=== PATIENT | male | born 1950 | race Native Hawaiian/Other Pacific Islander ===

== ENCOUNTER → 2018-01-02 | Outpatient (CLI) | payer OTHER ==
[~2018-01-02] MED LIST: ALLOPURINOL 30300 M1 PO; AMLODIPINE BESY10 MG PO; COZAAR 50 MG TA50 M2 PO; HIGH BLOOD PRESSURE; HYDROCHLOROTH12.5 M1 PO; KEFLEX500 MG PO; PREVPAC PATIEN1 EACH PO; PRILOSEC40 MG PO
== END ==
LOC: M.RAD 14:24
DX: M25.511 Pain in right shoulder (principal); M25.512 Pain in left shoulder; M19.90 Unspecified osteoarthritis, unspecified site

== ENCOUNTER 2019-05-28 13:28 | Inpatient (IN) | payer OTHER ==
[~2019-05-28] VITALS: Ht 182.9 cm; Wt 113.5 kg
[~2019-05-28 13:28] MED LIST changes: +OMEPRAZOLE40 MG PO; -PRILOSEC40 MG PO
[2019-05-28 13:33] VITALS: BP 144/63
[2019-05-28] MEDS ORDERED: FOLIC ACID1 MG PO (13:52)
[2019-05-28] MEDS ORDERED: PREDNISONE 5 MG5 M1 PO (13:52)
[2019-05-28] MEDS ORDERED: SYNTHROID75 MCG PO (13:52)
[2019-05-28] MEDS ORDERED: METHOTREXATE 22.5 MG PO (13:52)
[2019-05-28] MEDS ORDERED: COZAAR 25 MG TA25 M2 PO (13:52)
[2019-05-28] MEDS ORDERED: NORVASC10 MG PO (13:53)
[2019-05-28] MEDS ORDERED: HYDROCHLOROTH12.5 M1 PO (13:53)
[2019-05-28 14:49] LABS: HEMOGLOBIN 7.9 gm/dL (14.0-18.0); MCHC 35.1 g/dL (28.0-37.0); RBC 2.09 mil/uL (4.50-6.00)
[2019-05-28 14:52] LABS: HEMATOCRIT 22.5 % (42.0-52.0); MCH 37.7 pg (26.0-34.0); MCV 107.4 fL (80.0-100.0); MPV 8.2 fl. (7.2-11.1); NUCLEATED RBCS 0 /100WBC; RDW-CV 19.1 % (10.5-14.5)
[2019-05-28 14:55] LABS: PLATELET COUNT* 16 thou/uL (150-400); WBC 0.6 thou/uL (4.0-11.0)
[2019-05-28 15:09] LABS: ANION GAP 11 mmol/L (7-16); BUN 11 mg/dL (7-18); CALCIUM 8.4 mg/dL (8.5-10.1); CHLORIDE 93 mmol/L (98-107); CO2 23 mmol/L (21-32); CREATININE 1.3 mg/dL (0.6-1.3); GLUCOSE 121 mg/dL (70-99); POTASSIUM 3.6 mmol/L (3.5-5.1); SODIUM 127 mmol/L (136-145)
[2019-05-28 15:13] LABS: ALBUMIN 2.6 g/dL (3.4-5.0); ALKALINE PHOSPHATASE 135 U/L (46-116); SGOT 257 U/L (15-37); SGPT 187 U/L (30-65); TOTAL BILIRUBIN 2.8 mg/dL (<0.1-1.0); TOTAL PROTEIN 6.5 g/dL (6.4-8.2); TROPONIN-I LEVEL <0.06 ng/mL (<0.06)
[2019-05-28 15:33] LABS: URINE BLOOD NEGATIVE (Negative); URINE CLARITY CLEAR; URINE COLOR YELLOW; URINE GLUCOSE-RANDOM TRACE (Negative); URINE KETONES TRACE (Negative); URINE LEUKOCYTES-REFLEX NEGATIVE (Negative); URINE PROTEIN 1+ (Negative); URINE SPECIFIC GRAVITY 1.015 (1.005-1.030); URINE UROBILINOGEN >= 8.0 E.U./dl (0.2-1.0)
[2019-05-28 15:45] LABS: URINE BILIRUBIN 3+ (Negative); URINE NITRITE-REFLEX POSITIVE (Negative)
[2019-05-28 15:46] LABS: ICTOTEST (BILI CONFIRMATORY) Negative (Negative)
[2019-05-28 16:11] LABS: ABSOLUTE LYMPHOCYTES 0.4 thou/uL (0.8-5.3); ABSOLUTE NEUTROPHILS 0.2 thou/uL (1.6-8.1); ATYPICAL LYMPHS 4 %
[2019-05-28 16:12] LABS: PLATELET ESTIMATE DECREASED
[2019-05-28 16:13] LABS: HYPOCHROMASIA 2+
[2019-05-28 16:14] LABS: ANISOCYTOSIS 2+; MACROCYTES 1+
[2019-05-28 16:41] LABS: SQUAMOUS 0-3 Few /LPF (0-3)
[2019-05-28 16:42] LABS: MUCUS 4-6 Moderate strn/LPF (None Seen); URINE RBC 0-2 Rare /HPF (0-2); URINE WBC-REFLEX None Seen /HPF (0-5)
[2019-05-28 16:43] LABS: FINE GRANULAR CASTS 0-3 Few /LPF (None Seen); HYALINE CASTS >10 Many /LPF (None Seen)
[2019-05-28 16:44] LABS: CRYSTALS None Seen /LPF (None Seen)
[2019-05-28 16:58] LABS: APTT 33.5 Seconds (25.0-31.3); INR 1.2; PROTIME 12.5 Seconds (9.20-11.50)
[2019-05-28 17:12] LABS: % SATURATION 22 % (20-39); IRON 44 ug/dL (50-175)
[2019-05-28 17:29] LABS: CALCIUM 8.5 mg/dL (8.5-10.1); CREATININE 1.1 mg/dL (0.6-1.3); MAGNESIUM 1.4 mg/dL (1.8-2.4); POTASSIUM 3.6 mmol/L (3.5-5.1)
[2019-05-28 19:44] VITALS: BP 115/67
[2019-05-28 20:00] VITALS: BP 131/49
[2019-05-29] VITALS: BP 140/77
[2019-05-29 03:50] LABS: INFLUENZA A ANTIGEN Negative (Negative); INFLUENZA B ANTIGEN Negative (Negative)
[2019-05-29 04:00] VITALS: BP 126/73
[2019-05-29 04:35] LABS: HEMOGLOBIN 8.4 gm/dL (14.0-18.0)
[2019-05-29 04:38] LABS: HEMATOCRIT 24.2 % (42.0-52.0); MCH 37.3 pg (26.0-34.0); MCHC 34.8 g/dL (28.0-37.0); MCV 107.2 fL (80.0-100.0); NUCLEATED RBCS 1 /100WBC; RBC 2.26 mil/uL (4.50-6.00); RDW-CV 19.9 % (10.5-14.5)
[2019-05-29 04:47] LABS: CALCIUM 8.8 mg/dL (8.5-10.1); CREATININE 1.1 mg/dL (0.6-1.3)
[2019-05-29 05:00] LABS: PLATELET COUNT* 15 thou/uL (150-400); WBC 0.4 thou/uL (4.0-11.0)
--- NOTE | 2019-05-29 05:23 | NUR ---
ASSUMED PATIENT CARE AT 1900. PATIENT AERT AND ORIENTED TIMES FOUR. NO COMPLAINTS OF PAIN OR DISCOMFORT NOTED. HAS BEEN TRANSFERRING SELF TO [facility]. CO TEACHER AND HOURLY ROUNDING COPETED DOCUMENTED.
--- NOTE | 2019-05-29 05:28 | NUR ---
ASSUMED PATIENT CARE AT 1900. PATIENT ALERT AND ORIENTED TIMES FOUR. NO COMPLAINTS OF PAIN OR DISCOMFORT NOTED. IV PATENT. HOURLY ROUNDNG AND MERCHANDISER SEASONAL COMPLETED CHARTED.
[2019-05-29 05:38] LABS: ABSOLUTE LYMPHOCYTES 0.2 thou/uL (0.8-5.3); ABSOLUTE NEUTROPHILS 0.2 thou/uL (1.6-8.1)
[2019-05-29 05:39] LABS: ANISOCYTOSIS 1+; PLATELET ESTIMATE DECREASED; POIKILOCYTOSIS 1+
[2019-05-29 07:00] VITALS: BP 123/66
--- NOTE | 2019-05-29 08:21 | NUR ---
INITAL ASSESSMENT COMPLETED CHARTED. VSS. TRACING SR WITH BBB ON MONITOR. PT DENIES PAIN, CP, SOA, N/V/D. PT ALERT & ORIENTED AND ABLE TO VOICE ALL NEEDS. PT DENIES ANY FURTHER NEEDS AT THIS TIME. HOURLY ROUNDING AND FALL PRECAUTIONS IN PLACE FOR PT SAFETY. CLWR.
--- NOTE | 2019-05-29 09:30 | EKG ---
[place] [address] ELECTROCARDIOGRAM REPORT Name: JACIJENNA Herman Room: [address] ADM IN .R.#: [id number] Admission: 05/28/19 Attend Phys: Brii Whittington Discharge: Date of : 46 Report #: [id number] THIS REPORT FOR: //name// [facility] ED Test Date: 2019-05-28 Test Time: 14:41:28 Pat Name: JENNA BEATTY Department: Room: [facility] Gender: M Internal Control Analyst: EV : 1950 Requested By: Angelica Mina Order Number: [id number] MD: Kaushik Kline Measurements Intervals [place] Rate: 92 P: NV: QRS: 56 QRSD: 114 T: 4 QT: 375 QTc: 464 Interpretive Statements Sinus rhythm Right bundle-branch block Compared to ECG 11/17/2014 11:12:09 No significant changes noted Electronically Signed On 05-29-2019 9:29:55 CDT by Kaushik Kline [email or web address] <ELECTRONICALLY SIGNED> By: Kaushik Kline MD, FACCarlie 05/29/19 0929 [id number] Kaushik Kline MD, [facility] /EPI
[2019-05-29 12:00] VITALS: BP 108/60
--- NOTE | 2019-05-29 13:58 | NUR ---
Pt is A&O. Resides at home alone. Independent, continues to drive. Dtr completes cooking and cleaning. Pt has a cane that he uses PRN. No hx of HH or SNF. Goal is home at dc, no needs anticipated, but is open to HH if needed. Following.
[2019-05-29 16:00] VITALS: BP 118/66
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
[2019-05-29 20:00] VITALS: BP 114/59
[2019-05-30] VITALS (9 sets, daily range): BP systolic 101–135; BP diastolic 42–75
--- NOTE | 2019-05-30 05:50 | NUR ---
ASSUMED PATIENT CARE AT 1900. PATIENT ALERT AND ORIENTED TIMES FOUR. NO COMPLAINTS OF PAIN OR DISCOMFORT NOTED. IV PATENT TO FLUIDS. LABOR GANG SUPERVISOR AND HOURLY ROUNDING COMPLETED CHARTED.
--- NOTE | 2019-05-30 09:32 | NUR ---
ASSUMED CARE OF PT THIS AM AROUND 0715- COPPER ROLLER HANDLER PRINTING IN PLACE ORDERED, TRACING SR/BBB- UPON ASSESSMENT PT NOTED TO BE RESTING IN BED WITH EYES CLOSED, ARROUSABLE- PT A&O X4- CONTINENT OF BOWEL AND BLADDER- UP AD-KAILA IN ROOM, STEADY GAIT NOTED- LCTA, RESP EVEN AND UN-LABORED- VSS, O2 SAT 99% ON RA- ABD SOFT/ROUND/NON-TENDER, BS X4 QUADS- LAST BM REPORTED 05/29/19- IV NOTED TO LEFT AC INTACT, IVF INFUSSING PRESCRIBED- LEFT GREAT TOE NOTED WITH DRESSING INTACT, NO VISIBLE DRAINAGE NOTED-NEUTROPENIC PRECAUTIONS IN PLACE INDICATED- PT DENIES ANY C/O PAIN/DISCOMFORT AT THIS TIME- CALL LIGHT AND PERSONAL BELONGINGS WITH IN REACH- PT MAKES NEEDS KNOWN- ALL NEEDS MET AT THIS TIME-WCTM
[2019-05-30 09:38] LABS: BASOPHILS 0.1 %; EOSINOPHILS 0.8 %; HEMATOCRIT 22.2 % (42.0-52.0); HEMOGLOBIN 7.7 gm/dL (14.0-18.0); LYMPHOCYTES 58.6 %; MCH 37.6 pg (26.0-34.0); MCHC 34.7 g/dL (28.0-37.0); MCV 108.2 fL (80.0-100.0); MONOCYTES 16.9 %; MPV 7.6 fl. (7.2-11.1); NUCLEATED RBCS 1 /100WBC; POLYS 23.6 %; RBC 2.06 mil/uL (4.50-6.00); RDW-CV 19.6 % (10.5-14.5)
[2019-05-30 09:44] LABS: ABSOLUTE LYMPHOCYTES 0.6 thou/uL (0.8-5.3); ABSOLUTE MONOCYTES 0.2 thou/uL (0.0-1.2); ABSOLUTE NEUTROPHILS 0.3 thou/uL (1.6-8.1)
[2019-05-30 09:51] LABS: WBC 1.1 thou/uL (4.0-11.0)
[2019-05-30 10:01] LABS: ALBUMIN 2.3 g/dL (3.4-5.0); CALCIUM 8.3 mg/dL (8.5-10.1); CREATININE 0.9 mg/dL (0.6-1.3); POTASSIUM 3.4 mmol/L (3.5-5.1); TOTAL BILIRUBIN 1.3 mg/dL (<0.1-1.0); TOTAL PROTEIN 5.8 g/dL (6.4-8.2)
[2019-05-30] MEDS ORDERED: LISINOPRIL20 MG PO (13:21)
[2019-05-30] MEDS ORDERED: MULTIVITAMINS1 EAC7 PO (13:22)
[2019-05-30] MEDS ORDERED: MIRALAX17 GM PO (13:23)
[2019-05-30] MEDS ORDERED: SODIUM CHLORIDE PO (13:24)
[2019-05-30] MEDS ORDERED: CARDURA4 MG PO (13:26)
[2019-05-30] MEDS ORDERED: COLACE100 MG PO (13:27)
[2019-05-30] MEDS ORDERED: ASPIR 8181 MG PO (13:28)
[2019-05-30] MEDS ORDERED: TYLENOL EXTRA500 MG PO (13:29)
[2019-05-30] MEDS ORDERED: CARVEDILOL12.5 MG PO (13:29)
[2019-05-30] MEDS ORDERED: IRON325 PO (13:29)
[2019-05-30] MEDS ORDERED: FISH OIL 1,001000 M2 PO (13:30)
[2019-05-30] MEDS ORDERED: VITAMIN D1000 UNI1 PO (13:31)
[2019-05-30] MEDS ORDERED: VITAMIN B-12500 MCG PO (13:32)
--- NOTE | 2019-05-30 13:36 | NUR ---
Nutrition: consulted for wound, not pressure related. No intake records. Other staff in with pt at visit this afternoon. BMI indicates obesity. Prealbumin 8.4. Per physician note, pt denied any issues eating or drinking. Receiving Ensure per physicain order. Physician noted malnutrition-defer further dx. Assess at low risk at this time; rec continue POC.
[2019-05-30] MEDS ORDERED: NORVASC10 MG PO (16:18)
[2019-05-30] MEDS ORDERED: COZAAR 25 MG TA25 M1 PO (16:24)
[2019-05-30] MEDS ORDERED: FOLIC ACID1 MG PO (16:24)
[2019-05-30] MEDS ORDERED: METHOTREXATE 22.5 MG PO (16:25)
[2019-05-30] MEDS ORDERED: PREDNISONE 5 MG5 M1 PO (16:26)
[2019-05-30] MEDS ORDERED: OMEPRAZOLE40 MG PO (16:29)
--- NOTE | 2019-05-30 18:53 | NUR ---
ORDERS RECEIVIED FOR OKAY TO D/C THIS SHIFT POST PLATELET INFUSSION PER - DR RUTH HERE AND STATES SHE WILL HAVE ODDICE CONTACT PT FOR FOLLOW UP APPOINTMENT AT HOME- I UNIT OF PLATLETS GIVEN PRIRO TO D/C WITH NO PROBLEMS NOTED- IV TO LEFT FA D/C'D ALONG WITH TOWER SUPERVISOR PRIOR TO D/C- D/C EDUCATION/TEACHING/NEEDED FOLLOW UP'S COMMUNICATED, WITH VERBAL UNDERSTANDING NOTED PER PT AND GRAND DAUGHTER- WRITTEN EDUCATION PROVIED TO PT AND GRAND DAUGHTER WITH ALL QUESTIONS AND CONCERNS ADDRESSED PRIOR TO D/C- BELONGINGS PACKED AND ACCOUNTED FOR PER PT AND GRANDAUGHTER- PT ESCORTED PER TECH VIA W/C WITH BELONGINGS; GRAND DAUGHTER AT SIDE TO VEHICLE AT 1902- NO PROBLEMS TO NOTE AT TIME OF D/C
[2019-05-31 08:03] LABS: PLATELET COUNT* 12 thou/uL (150-400)
--- NOTE | 2019-06-14 10:07 | PATH ---
[address] [address] PATHOLOGY RPT PROCEDURE Name: CORTEZ PAREKH Room: [address] IN [facility]#: [id number] Admission: 05/28/19 Date of : 46 Discharge: 05/30/19 Report #: [id number] Path Case #: [id number] [facility] Accession Number: [id number] . 01 Material submitted: . PART A: bone - BONE MARROW BIOPSY PART B: bone - BONE MARROW CLOT PART C: bone - BONE MARROW ASPIRATE SLIDE PART D: bone - PERIPHERAL BLOOD SMEAR PART E: bone - BONE MARROW FLOW . 01 Clinician provided ICD-10: D 61.818 K72.00 . 01 Clinical history: . Other pancytopenia, acute and subacute hepatic failure without coma 69-year-old man with pancytopenia. . 02 Diagnosis: Bone marrow aspirate, biopsy, cell clot and peripheral blood: - Peripheral blood with pancytopenia including moderate to severe macrocytic anemia, severe leukopenia and severe thrombocytopenia. - Mildly hypercellular bone marrow with trilineage hematopoiesis, erythroid hyperplasia/mild myeloid hypoplasia, trilineage dyspoiesis and mildly increased blasts (7% by flow cytometry and 9% by morphology). - Monoclonal plasma cell population detected (5-10% lambda restricted plasma cells by immunohistochemical staining). - See comment. (CLW:ross; 06/05/2019) . . Special studies report received from [facility], [address] [place] [address], [address], [place], [address], on case [id number], labeled with their number [id number], dated 06/01/2019. . Flow Cytometry: Hematologic Neoplasia Assessment . Clinical History Pancytopenia, hepatic failure . Indication for Study Evaluation for hematolymphoid neoplasia . Specimen Bone Marrow Aspirate . Viability 71% (7AAD exclusion) [place] [address] PATHOLOGY RPT PROCEDURE Name: CORTEZ PAREKH Room: [address] IN [facility]#: [id number] Admission: 05/28/19 Date of : 46 Discharge: 05/30/19 Report #: [id number] Path Case #: [id number] . Interpretation Bone Marrow Aspirate: - Relatively decreased granulocytes, abnormal granulocytes maturation pattern and 7% blasts. - Relatively increased monocytic cells (22% of sample), - Monotypic plasma cell population (1.2% of sample), consistent with a plasma cell neoplastic process . Comments The immunophenotypic changes in myeloid and monocytic cells are compatible with, but are not specific for a myeloid neoplasm (CMML, etc.). Some reactive process (sever infection, medication, etc.) may cause similar immunophenotypic changes in the bone marrow. Atypical monocytes cannot be differentiated from promonocytes by flow cytometry and acute myeloid leukemia with monocytic differentiation is also in the differential diagnosis. Plasma cells are typically underrepresented by flow cytometry. Correlation with all available clinical, laboratory, and morphologic data is recommended. . The results should be considered in the context of decreased specimen integrity. . . Populations Analyzed Myeloid Blasts: 7% FR20hfp+, CD38+, CD13+, CD34+, CD117+, HLA-DR+, CD33-/+(33%+), CD64-/+, CD11b-, CD11c-/ subset dim+, CD7-, CD56-, CD2-/ subset dim+. Blasts are predominantly negative for other markers tested. Lymphocytes: 33% B-cells: 3.1%, polytypic/polyclonal sIg light chain pattern T-cells: no significant abnormalities of the markers tested CD4+ T-cells: 19.9% (including 0.9% CD57+ cells) CD8+ T-cells: 4.0% (including 1.7% CD57+ cells) CD4:CD8: 5.0 NK cells: 4.7% Neutrophilic Cells: 28% Relatively decreased. Decreased CD16; partial CD56 (approximately 13%+); decreased side scatter Monocytic Cells: 22% Relatively increased. Slightly decreased CD14 and CD11b; partial CD56 (approximately 27%+) Eosinophils: 1% No relative increase Basophils: 0.2% No relative increase Plasma Cells: 1.5% 1) Abnormal plasma cells, 1.2% of sample, CD45-, CD19-, CD20-, CD38+ (bright), CD56+/-, CD117+, CD138+, HLA DR-, cIg lambda+ 2) Polytypic plasma cells, 0.3% of sample Hematogones: 0.01% [place] [address] PATHOLOGY RPT PROCEDURE Name: CORTEZ PAREKH Room: [address] IN [facility].R.#: [id number] Admission: 05/28/19 Date of : 46 Discharge: 05/30/19 Report #: [id number] Path Case #: [id number] Remaining CD45 6% No significant reactivity with the markers Negative Events/ tested (may represent unlysed red blood cells, Debris: erythroid precursors, platelets, debris, etc.) (erythroid precursors may be underrepresented due to sample lysis/processing) . Morphologic Evaluation A slide was reviewed for director quality assurance purposes only. . Specimen Description Total Cell Yield: 2.48 X 10 and 6 Viability is 71%. Flow cytometric data derived from samples with <80% viability needs to be interpreted within the context of all clinical, laboratory, and morphologic data available. . Reagent(s) Used CD2, CD3, CD4, CD5, CD7, CD8, CD10, CD11b, CD13, CD14, CD16, CD19, CD20, CD33, CD34, CD38, CD45, CD56, CD57, CD64, CD117, HLA-DR, kappa, lambda, CD138, CytoKappa, CytoLambda . at [employer]. Bruna Dutton MD Pathologist . Intended Use Flow cytometry is optimally used to immunophenotypically characterize abnormal populations when they are detected. Negative flow cytometry results do not exclude lymphoma or neoplasia. Possible false negative flow cytometry results may occur in, but are not limited to, the following: neoplastic cells in Hodgkin lymphoma are not typically adequately represented by routine clinical flow cytometry; neoplastic cells may be lost or inadequately represented due to degeneration, sample processing, sampling artifact, or patchy involvement; plasma cells are typically underrepresented by flow cytometry; immature cells/blasts may be underrepresented due to hemodilution; myeloproliferative disorders and low grade myelodysplasia may not have immunophenotypic abnormalities or increased blasts. Correlation with all available clinical, laboratory, and morphologic data is always necessary to assess for the possibility of false negative flow cytometry results and to establish a diagnosis. Each marker in this analysis was used to assess for potential antigenic abnormalities or to evaluate detected abnormalities. . Disclaimer(s) This test was performed at [employer]. at [address] [place] [address], [id number] Supervisor Inspection: Horacio Pineda MD. [employer] is a business unit of [employer] a wholly-owned subsidiary [place] [address] PATHOLOGY RPT PROCEDURE Name: CORTEZ PAREKH Room: [address] IN [facility]#: [id number] Admission: 05/28/19 Date of : 46 Discharge: 05/30/19 Report #: [id number] Path Case #: [id number] [employer]. . Any image or images that accompany this report are business representative images only and should not be used to render a diagnosis. . This test was developed and its performance characteristics determined by [employer]. It has not been cleared or approved by the Food and Drug Administration (FDA). The FDA has determined that such clearance or approval is not necessary. . For inquiries, the physician may contact Lab: [phone] . A complete copy of the report is on file. . Professional services performed by [employer]. at [address] [facility] [address], [place] [address]. Technical services performed by [employer]. at [address] [facility] [address], [place] [address]. . (CLW:artemio 05/31/2019) . [place] 06/05/2019 1701 Local . 02 Comment: Overall the bone marrow is mildly hypercellular for the patient's age with trilineage hematopoiesis, erythroid hyperplasia/mild myeloid hypoplasia, trilineage dyspoiesis and mildly increased blasts. There are 7% myeloblasts detected by flow cytometry and 9% identified by morphology. Additionally, there is a relative monocytosis without a peripheral blood absolute monocytosis. Plasma cells are lambda restricted and comprise 5-10% of the marrow cellularity. In regards to the plasma cell dyscrasia, correlation with clinical history, additional laboratory data and radiographic findings is required to determine the extent of the disease process. The trilineage dyspoiesis and mildly increased blasts may represent myelodysplasia (myelodysplastic syndrome with excess blasts / MDS-EB or an evolving chronic myelomonocytic leukemia / CMML). Correlation with clinical history, additional laboratory data and cytogenetics/FISH studies is required. The aspirate smears are co-reviewed with Dr. Eugenia Foreman. (CLW:ross; 06/05/2019) . 02 Addendum: . Special studies report received from [facility], [address] [place] [address], [facility] [address], [place], [address], on case [id number], labeled with their number [id number], dated 06/06/2019. . Fluorescence in situ Hybridization (FISH) Report Multiple Myeloma-[place] [address] PATHOLOGY RPT PROCEDURE Name: CORTEZ PAREKH Room: [address]#: [id number] Admission: 05/28/19 Date of : 46 Discharge: 05/30/19 Report #: [id number] Path Case #: [id number] . RESULT: Assay specific abnormality detected by Multiple Myeloma FISH panel: CCND1/IGH translocation . Specimen Type: Bone Marrow . Indication for Study: Evaluate for multiple myeloma. . INTERPRETATION: Fluorescence in situ hybridization (FISH) analysis was performed on this patient's specimen using DNA probes for multiple myeloma panel. One hundred interphase nuclei were examined for each probe and the signal patterns revealed the following: . Positive for a CCND1/IGH translocation (31.0% of nuclei) . The signal pattern obtained with the remaining probes did not differ significantly from the normal controls. . Translocation (11;14) results in the fusion of CCND1 (BCL1) at 11q13 with the immunoglobulin heavy chain gene (IgH) gene at 14q32. This genetic alteration is found in 15-18% of patients with plasma cell myeloma (multiple myeloma) by FISH analysis and is associated with a favorable prognosis in the absence of poor prognostic markers. . Genetic changes other than those assayed in this study cannot be ruled out on the basis of this testing. Correlation with cytogenetic, clinical and hematopathological findings is suggested for a complete interpretation of the results. Follow-up FISH analysis may be considered as a means to monitor the clinical course of the disease. . See Flow Cytometry report [id number] for further information. See Cytogenetic report [id number] for further information. . The following [employer] FISH analysis was performed on this patient's specimen: . Probe Detection Parameters Result ISCN Centromere 7 Detects a gain of Not Detected nuc ned(D7Z1x2)(100) chromosome 7 . Centromere 9 Detects a gain of Not Detected nuc ned(D9Z4x2)(100) chromosome 9 . Centromere 15 Detects a gain of Not Detected nuc ned(R91S8w9)(100) chromosome 15 . 13q14(DLEU1) Detects a deletion Not Detected nuc ned(DLEU1,TFDP1)x2 of 13q (100) [place] [address] PATHOLOGY RPT PROCEDURE Name: CORTEZ PAREKH Room: [address] IN [facility]#: [id number] Admission: 05/28/19 Date of : 46 Discharge: 05/30/19 Report #: [id number] Path Case #: [id number] . TP53/17p Detects a deletion Not Detected nuc ned(TP53x2)(100) of TP53 gene . CKS1B/1q21 Detects a gain of Not Detected nuc ned(SRD,CKS1B)x2 1q21 (100) . CCND1/IGH - Detects a CCND1/IGH Detected nuc ned(XZBU9q9 t(11;14) translocation approximately 7,IGHx3 approximately 4)(CCND1 con IGHx3)(31/100) . FGFR3/IGH - Detects a FGFR3/IGH Not Detected nuc ned(AAJG2j2,IGHx3 t(4;14) translocation approximately 4) (35/100) . IGH/MAF - Detects an IGH/MAF Not Detected nuc ned(MAFx2,IGHx3 t(14;16) translocation approximately 4) (32/100) . at [employer]. Ruiz Chandra, Ph.D., ANTONIO HUITRON (ABB) Director of Cytogenetics and Molecular Oncology . . Methodology: Whole bone marrow or peripheral blood samples are incubated with magnetic microbeads conjugated with anti-CD138 antibodies. After labeling, the cells are passed through a column in which they are placed in the presence of a strong permanent magnetic field within the Auto[employer]ACS Separation Unit. CD138 positive cells are retained on the column and unlabeled cells (CD138 negative) pass through the column. The column is then removed from the magnetic field and the CD138 positive cells are eluted as the selected cell fraction. CD138 positive enriched plasma cells are processed with a standard hypotonic solution and then fixed using a solution of 3:1 methanol:acetic acid. Following this they are placed on glass slides. The enriched plasma cells are then hybridized with a set of FISH probes to identify genetic abnormalities of prognostic significance in plasma cell myeloma (multiple myeloma). The interphase cells are analyzed to define ploidy status and detect gene deletions/gene fusions important in defining the prognosis of plasma cell myeloma. For each probe, a total of 100 nuclei are analyzed by two technologists and results are reviewed by a Board certified billing assistant or a pathologist. . . Intended Use: Plasma cell enrichment is designed to increase the sensitivity of the FISH assay and enhance the ability to detect genomic aberrations implicated in [facility] [address] [place] [address] PATHOLOGY RPT PROCEDURE Name: CORTEZ PAREKH Room: [address] IN ..#: [id number] Admission: 05/28/19 Date of : 46 Discharge: 05/30/19 Report #: [id number] Path Case #: [id number] plasma cell neoplasm. It is not intended to be used as a quantitative assay as the value reported after enrichment does not reflect the proportion of tumor cells in the whole bone marrow or blood sample. . Disclaimer [facility] is a business unit of [employer] a wholly-owned subsidiary of [employer]. . Professional Component performed by [facility] [address] [place] [address], [place], [address] . Technical Component performed at [address] [place] [address], [place] [address], [place], [address] . . Any image(s) that accompany this report is/are a business representative image(s) only and should not be used to render a diagnosis. . This test was developed and its performance characteristics determined by [employer]. It has not been cleared or approved by the Food and Drug Administration. . A complete copy of the report is on file. . Professional services performed by [employer]. at [address] [facility] [address], [place] [address]. Technical services performed by [employer]. at [facility] [address] [facility] [address], [place] [address]. . (CLW:amshaan 06/06/2019) . AZJ/06/06/2019 Addendum Electronically Signed by Naina Carrizales MD, Pathologist Addendum #2: Special studies report received from [employer], [address] [place] [address], [place], [address], on case [id number], labeled with their number [id number], dated 06/02/2019. . Cytogenetic Analysis Report . RESULT: Normal Male Karyotype 46,XY(20) . Specimen Type: Bone Marrow . Indication for Study: Pancytopenia, hepatic failure. Evaluate for [place] [address] PATHOLOGY RPT PROCEDURE Name: CORTEZ PAREKH Room: [address] IN .R.#: [id number] Admission: 05/28/19 Date of : 46 Discharge: 05/30/19 Report #: [id number] Path Case #: [id number] INTERPRETATION: Cytogenetic analysis revealed no evidence of an acquired clonal abnormality. However, since plasma cells often have a low proliferative rate they may not have been represented in the metaphase population available for analysis. These results should be interpreted in the context of clinical and histopathologic findings. . See Flow Cytometry report [id number] for further information. See FISH report [id number] for further information. . Number of Metaphases Counted: 20 Banding: G-banding Number of Metaphase Cells Analyzed: 20 Band Level: 375 Number of Metaphase Cells Karyotyped: 2 Cultures Established: 24/48 hour unstimulated . . at [employer]. Cait Ramirez, PhD, FACMG Director of Clinical Cytogenetics . Disclaimer This Test was performed by [employer]. at [address], [address], [address]. [facility] is a business unit of [employer] a wholly-owned subsidiary of [employer]. . . Any image(s) that accompany this report is/are a business representative image(s) only and should not be used to render a diagnosis. . Based on the resolution of this study, standard cytogenetic methodology does not routinely detect subtle or sub-microscopic rearrangements or low level mosaicism. . A complete copy of the report is on file. . Professional services performed by [employer]. at [address], [place] [address]. Technical services performed by [employer]. at [address], [place] [address]. . (CLW:artemio 06/13/2019) AZJ/06/13/2019 Addendum Electronically Signed by Naina Carrizales MD, Pathologist . 02 Electronically signed: . Naina Carrizales MD, [place] [address] PATHOLOGY RPT PROCEDURE Name: CORTEZ PAREKH Room: [address]#: [id number] Admission: 05/28/19 Date of : 46 Discharge: 05/30/19 Report #: [id number] Path Case #: [id number] NPI- [id number] . 01 Gross description: . A. Received in formalin labeled "Cortez Parekh core," are 2 needle cores of dark murrieta bone measuring 0.6 and 0.7 cm in length and 0.3 cm each in diameter. The specimen is submitted entirely in cassette A1, following decalcification. . B. Received in formalin labeled "Cortez Parekh, clot," is an aggregate of dark murrieta blood clot measuring 2.9 x 2.0 x 1.8 cm. The specimen is filtered and entirely submitted in cassette B1-B4. (TSD; 05/30/2019) TOB/TOB 05/30/2019 1844 [facility] . 02 Microscopic: . CBC Data (05/30/19): WBC 400 /uL, RBC 2.26, hemoglobin 8.4 g/dL, hematocrit 24.2%, MCV 107.2 fL, MCH 37.3 pg, MCHC 34.8 g/dL, RDW 19.9%, and platelet count 15,000 /uL. White blood cell differential: Segs 52%, lymphs 46%, monos 2%. . Peripheral Blood Smear: Cytomorphological examination of the Pool's stained peripheral blood smear confirms the provided data. Red blood cells show moderate to severe macrocytic anemia with mild anisocytosis. White blood cells are decreased in number. They are predominantly lymphocytes that are small, round and mature-appearing with condensed chromatin and scant cytoplasm. Granulocytes are predominantly segmented neutrophils and are without significant dyspoiesis or significant left shift. Monocytes are mature. Platelets are markedly decreased in number and mainly normal in morphology with rare larger platelets noted. . Aspirate Smears: Cytomorphological examination of the Pool's stained aspirate smears shows spicules present. The overall cellularity is approximately 40-50%. The myeloid to erythroid ratio is 1:2. Myeloid maturation is abnormal with left shift, increase in monocytes and increase in blasts. No Angely rods are seen. Erythroid maturation is dyserythropoietic with irregular nuclear contours, basophilic stippling, mitotic figures and occasional nuclear buds. In a 500 cell differential, there are 9% blasts (no Angely rods are seen), 16% more differentiated myeloids, 50% erythroid precursors, 23% lymphocytes and 2% plasma cells. Megakaryocytes are proportional in number and both normal and abnormal in morphology with variable sizes and nuclear abnormalities including small and/or hypolobated forms present. No lymphoid aggregates or markedly atypical lymphoid cells are seen. Plasma cells are without marked atypia. Iron stain of the aspirate smear shows 3/4+ iron positivity. No ringed sideroblasts are identified. . Core Biopsy and Cell Clot: [address] [place] [address] PATHOLOGY RPT PROCEDURE Name: CORTEZ PAREKH Room: [address] IN [facility].#: [id number] Admission: 05/28/19 Date of : 46 Discharge: 05/30/19 Report #: [id number] Path Case #: [id number] The decalcified bone marrow core biopsy is adequate. The bone marrow is mildly hypercellular with an overall cellularity of approximately 50%. The myeloid to erythroid ratio is 1:2. Myeloid and erythroid maturation are dyspoietic. Megakaryocytes are present and somewhat inconspicuous. No lymphoid aggregates or markedly atypical lymphoid cells are seen. Bony trabeculae and blood vessels are unremarkable. The cell clot has rare spicules present that are similar in cellularity and differential morphology as previously described. . Properly controlled special stains are performed. Block A1 Iron - 2/4+ iron positivity; Reticulin - no significant reticulin fibrosis. . Block B1 Iron - 0/4+ iron positivity (predominantly blood and peripheral blood elements). . To confirm the flow cytometry findings, further evaluate and quantify the plasma cell population and to identify cells in a tissue architectural context, properly controlled immunohistochemical stains are performed. . Block A1 CD34 - no markedly increased or abnormality localized blasts; CD117 - no markedly increased or abnormally localized blasts; MPO - confirms the M:E ratio (erythroid hyperplasia); Glycophorin A - confirms the M:E ratio (erythroid hyperplasia); CD68 - mildly increased monocytic cells; CD138 - 5-10% scattered plasma cells; Short and lambda in situ hybridization - plasma cells are lambda restricted with rare kappa positive cells present. . Block B2 CD34 - occasional scattered blasts; CD117 - occasional scattered blasts; MPO - confirms the M:E ratio; Glycophorin A - confirms the M:E ratio; CD68 - mildly increased monocytic cells; CD138 - 5-10% scattered plasma cells; Short and lambda in situ hybridization - plasma cells are lambda restricted with rare kappa positive cells present. . Flow Cytometry: Flow cytometric immunophenotypic analysis was performed at [facility]. The diagnosis is "relatively decreased granulocytes, abnormal granulocytes maturation pattern and approximately 7% blasts; relatively increased monocytic cells (22% of sample); monotypic plasma cell population (1.2% of sample), consistent with a plasma cell neoplastic process." There are 7% myeloid blasts. There are 33% [place] [address] PATHOLOGY RPT PROCEDURE Name: CORTEZ PAREKH Room: [address] IN [facility]#: [id number] Admission: 05/28/19 Date of : 46 Discharge: 05/30/19 Report #: [id number] Path Case #: [id number] the lymphocytes, there are 3.1% polyclonal B-cells. T-cells have a CD4/CD8 ratio of 5.0 and no aberrant T-cell antigen expression. Granulocytes are relatively decreased and show decreased CD16 expression, partial CD56 expression and decreased side scatter. Plasma cells comprise 1.5% of cells and are characterized as cytoLambda positive. Please see separate flow cytometry [place] [facility] ([id number]). . Cytogenetics Analysis: Cytogenetic chromosomal analysis is pending at [facility] ([id number]). FISH analysis is pending at [facility] ([id number]). . (CLW:ross; 06/05/2019) . 02 Pathologist provided ICD-10: D61.818, D53.9, D72.819, D69.6, D75.89 . 02 CPT . 829969, 745807, 393202, 291114, 878205, 971848, 946380, 455563, 223196, N90752, I97293, D24371, E27560 Specimen Comment: A courtesy copy of this report has been sent to Specimen Comment: [phone], . Specimen Comment: Report sent to / DR GAVIRIA Performed at: 01 [facility] [address] [id number] MD Melo Jenkins MD Phone: [phone] Performed at: 02 [facility] [address] [id number] MD Landry Krishna MD Phone: [phone]
== END 2019-05-30 19:02 | disposition home or self-care (01) | DRG 808 ==
LOC: M.ERS 13:28 → M.TBA-ER 16:20 → M.ERS 16:20 → M.2W 16:20
PROVIDERS: Nurse Practitioner Family; ADMIT Internal Medicine
PROC: 30233R1 Transfusion of Nonautologous Platelets into Peripheral Vein, Percutaneous Approach (ICD-10-PCS; principal; 2019-05-30)
PROC: 07DR3ZX Extraction of Iliac Bone Marrow, Percutaneous Approach, Diagnostic (ICD-10-PCS; principal; 2019-05-30)
DX: D61.818 Other pancytopenia (principal); K72.00 Acute and subacute hepatic failure without coma; E87.1 Hypo-osmolality and hyponatremia; E44.0 Moderate protein-calorie malnutrition; E03.9 Hypothyroidism, unspecified; K21.9 Gastro-esophageal reflux disease without esophagitis; M06.861 Other specified rheumatoid arthritis, right knee; T50.905A Adverse effect of unspecified drugs, medicaments and biological substances, initial encounter; I10 Essential (primary) hypertension; L97.529 Non-pressure chronic ulcer of other part of left foot with unspecified severity; K12.1 Other forms of stomatitis; Z68.33 Body mass index [BMI] 33.0-33.9, adult; Z87.11 Personal history of peptic ulcer disease; Y92.89 Other specified places as the place of occurrence of the external cause

== ENCOUNTER → 2019-09-26 | Outpatient (CLI) | payer OTHER ==
[~2019-09-26] MED LIST changes: +ASPIR 8181 MG PO; +CARDURA4 MG PO; +CARVEDILOL12.5 MG PO; +COLACE100 MG PO; +COZAAR 25 MG TA25 M1 PO; +COZAAR 25 MG TA25 M2 PO; +FISH OIL 1,001000 M2 PO; +FOLIC ACID1 MG PO; +IRON325 PO; +LISINOPRIL20 MG PO; +METHOTREXATE 22.5 MG PO; +MIRALAX17 GM PO; +MULTIVITAMINS1 EAC7 PO; +NORVASC10 MG PO; +PREDNISONE 5 MG5 M1 PO; +SODIUM CHLORIDE PO; +SYNTHROID75 MCG PO; +TYLENOL EXTRA500 MG PO; +VITAMIN B-12500 MCG PO; +VITAMIN D1000 UNI1 PO
== END ==
LOC: M.CT 14:15
DX: J84.9 Interstitial pulmonary disease, unspecified (principal); J98.4 Other disorders of lung; M46.04 Spinal enthesopathy, thoracic region; E03.9 Hypothyroidism, unspecified; I10 Essential (primary) hypertension; M1A.0790 Idiopathic chronic gout, unspecified ankle and foot, without tophus (tophi); E55.9 Vitamin D deficiency, unspecified

== ENCOUNTER → 2020-03-04 | Outpatient (CLI) | payer OTHER ==
--- NOTE | 2020-03-04 14:50 | 2DMMODE ---
[place] [address] 2 D/M-MODE ECHOCARDIOGRAM Name: JENNA BEATTY Room: [facility]#: [id number] Admission: 03/04/20 Attend Phys: Antwan Martinez, Discharge: Date of : 46 Date of Service: 03/04/20 1450 Report #: [id number] THIS REPORT FOR: cc: Antwan Martinez MD, David L. MD Liston, Michael J. MD [facility] ~ APPROVED REPORT Study performed: 03/04/2020 12:54:19 EXAM: Comprehensive 2D, Doppler, and color-flow Echocardiogram Patient Location: Out-Patient BSA: 2.48 HR: 91 bpm BP: 128/88 mmHg Other Information Study Quality: Fair Indications Dyspnea 2D Dimensions IVSd: 13.07 (7-11mm) LVOT Diam: 20.04 (18-24mm) LVDd: 47.85 mm PWd: 10.91 (7-11mm) Ascending Ao: 32.47 (22-36mm) LVDs: 25.32 (25-40mm) Aortic Root: 26.83 mm Volumes Left Atrial Volume (Systole) LA ESV Index: 13.50 mL/m2 Aortic Valve AoV Peak Ananda.: 1.14 m/s AO Peak Gr.: 5.22 mmHg LVOT Max P.36 mmHg AO Mean Gr.: 2.70 mmHg LVOT Mean P.34 mmHg LVOT Max V: 1.16 m/s AO V2 VTI: 19.19 cm LVOT Mean V: 0.68 m/s CELINA (VTI): 3.44 cm2 LVOT V1 VTI: 20.92 cm Mitral Valve E/A Ratio: 0.78 [place] [address] 2 D/M-MODE ECHOCARDIOGRAM Name: JENNA BEATTY Room: [facility]#: [id number] Admission: 03/04/20 Attend Phys: Antwan Martinez, Discharge: Date of : 46 Date of Service: 03/04/20 1450 Report #: [id number] MV Decel. Time: 258.99 ms MV E Max Ananda.: 0.85 m/s MV PHT: 75.11 ms MVA (PHT): 2.93 cm2 TDI E/Lateral E': 10.63 E/Medial E': 10.63 Medial E' Ananda.: 0.08 m/s Lateral E' Ananda.: 0.08 m/s Pulmonary Valve PV Peak Ananda.: 1.12 m/s PV Peak Gr.: 5.00 mmHg Tricuspid Valve RAP Estimate: 5.00 mmHg TR Peak Gr.: 20.34 mmHg RVSP: 25.34 mmHg PA Pressure: 25.34 mmHg Left Ventricle The left ventricle is normal size. There is normal LV segmental wall motion. There is normal left ventricular wall thickness. Left ventricular systolic function is normal. LVEF is 60-65%. Grade I - abnormal relaxation pattern. Right Ventricle The right ventricle is normal size. The right ventricular systolic function is normal. Atria The left atrium size is normal. The right atrium size is normal. Aortic Valve Mild aortic valve sclerosis. Trace aortic regurgitation. There is no aortic valvular stenosis. Mitral Valve The mitral valve is normal in structure. There is no mitral valve regurgitation noted. No evidence of mitral valve stenosis. Tricuspid Valve The tricuspid valve is normal in structure. Mild tricuspid regurgitation. No pulmonary hypertension. Pulmonic Valve The pulmonary valve is normal in structure. There [place] [address] 2 D/M-MODE ECHOCARDIOGRAM Name: EJNNA BEATTY Room: [facility]#: [id number] Admission: 03/04/20 Attend Phys: Antwan Martinez, Discharge: Date of : 46 Date of Service: 03/04/20 1450 Report #: [id number] valvular regurgitation. Great Vessels The aortic root is normal in size. IVC is normal in size and collapses >50% with inspiration. Pericardium There is no pericardial effusion. <Conclusion> The left ventricle is normal size. There is normal left ventricular wall thickness. Left ventricular systolic function is normal. LVEF is 60-65%. Grade I - abnormal relaxation pattern. There is normal LV segmental wall motion. Mild aortic valve sclerosis. Trace aortic regurgitation. There is no aortic valvular stenosis. Mild tricuspid regurgitation. No pulmonary hypertension. IVC is normal in size and collapses >50% with inspiration. <ELECTRONICALLY SIGNED> By: Kaushik Kline MD, FACC 03/04/20 1450 1450 1450 Kaushik Kline MD, FACC /INF
== END ==
LOC: M.CRD 02-20 10:47
PROVIDERS: ATTEND Internal Medicine
DX: M51.36 Other intervertebral disc degeneration, lumbar region (principal); M48.061 Spinal stenosis, lumbar region without neurogenic claudication; M47.896 Other spondylosis, lumbar region; M47.895 Other spondylosis, thoracolumbar region; I08.2 Rheumatic disorders of both aortic and tricuspid valves; M54.5 Low back pain; R06.02 Shortness of breath